=== PATIENT | female | born 1990 | race Two or more races ===

== ENCOUNTER → 2017-07-26 | Outpatient (CLI) | payer MEDICAID ==
[~2017-07-26] MED LIST: AMITRIPTYLINE 550 MG PO; AMLO2.5T PO; BENZONATATE100 M1 PO; FLEXERIL10 MG PO; LEXAPRO 20 MG T20 MG PO; NAPROSYN500 M1 PO; NATURE'S BLEN5000 IU PO; NORCO 325 MG-51 TAB PO; PROPRANOLOL HYD80 MG PO; SUMATRIPTAN SUC25 MG PO; TOPIRAMATE100 MG PO; VENTOLIN H0.09 MG/AC IH; VESICARE5 MG PO
[2017-07-26 16:58] LABS: LYMPH # 1.3 K/mm3 (0.7-4.5); LYMPH % 19.8 % (10-50.0)
[2017-07-26 19:08] LABS: BUN 9 mg/dL (7-18); GFR (ESTIMATED) 74 ML/MIN (59-)
[2017-07-28 08:41] LABS: Iron 92 ug/dL (27-159); Iron Saturation 34 % (15-55); UIBC 179 ug/dL (131-425)
== END ==
LOC: LAB 15:58
PROVIDERS: Emergency Medicine
DX: M79.672 Pain in left foot (principal); M84.375D Stress fracture, left foot, subsequent encounter for fracture with routine healing; R60.0 Localized edema